=== PATIENT | male | born 1930 | race Caucasian/White ===

== ENCOUNTER 2016-10-12 12:13 | Inpatient (IN) | payer MEDICARE, OTHER ==
[~2016-10-12] VITALS: Ht 175.3 cm; Wt 76.3 kg
[~2016-10-12 12:13] MED LIST: AC500T PO; ACET-2469 PO; ASP81TEC PO; ATOR20TA66 PO; ATR20T PO; AZIT250T5 PO; AZIT500T PO; BENZ-13 PO; CALC-793 PO; CEFD300C3 PO; CLOB15CR2 TP; CLOB15CR3 TP; DARI15TA4 PO; DOCU-143 PO; ERGO400C PO; FESO8TAB PO; GABA600T2 PO; GBPN600T PO; GUAI118S37 PO; GUAI600T59 PO; IPRA3AMP IH; IPRA3AMP INH; LEVE500T6 PO; LEVO100T7 PO; LEVO750T39 PO; LISI10TA2 PO; LSNP20T PO; LVT.1T PO; MAGN400O7 PO; MENT71OI TP; MULT-1029 PO; NATURAL TEARS OU; NIAC1CAP PO; OLIV30OI EACH EAR; OLN2.5T PO; OXB5TCR PO; OXYBUTYNIN CHLORIDE TD; POLY17PO6 PO; POLY255P PO; PRD10T PO; ROBITUSSIN DM; SCOPOLAMINE 1.5 MG (TRANSDERM-SCOP) PATCH TOP SCH; TETR15DR73 OP; TR025C15 TP; TYLENOL PM PO; [UNRECOGNIZED DRUG - CODE] TP; [UNRECOGNIZED DRUG - OTHER] EACH EAR; [UNRECOGNIZED DRUG - OTHER] TP
--- OUTSIDE RECORDS SUMMARY | 2016-10-12 12:19 | XMS REPORT | Continuity of Care Document ---
Author Author [facility] Organization [facility] Address Unknown Phone Unavailable Care Team Providers Care Director Translational Name Role Phone PCP Unavailable Source Comments Some departments are not documenting in the electronic medical record. If you do not see the information that you expected, contact Release of Information in the Health Information Management department at [phone] for further assistance in locating additional records.[facility] Active Allergies and Adverse Reactions Not on File Current Medications Not on file Active Problems Not on file Social History Tobacco Use Types Packs/Day Years Used Date Never Assessed Plan of Care Health Maintenance Due Date Last Done Comments Physical (Comprehensive) 1937 Exam Pertussis Vaccine 1941 Tetanus Vaccine 1947 Shingles Vaccine 1990 Prevnar/Pneumovax (#1) 1995 Influenza Vaccine 06/09/2016 Results from Last 3 Months Not on file
[2016-10-12] MEDS ORDERED: NS IV 500 ML 500 ML IV ONE (14:04)
--- NOTE | 2016-10-12 14:14 | ED General ---
General Stated Complaint: ABNORMAL LABS Source of Information: Patient Exam Limitations: No Limitations History of Present Illness Time Seen by Provider: 13:54 Initial Comments Here with report of irregular labs today. Apparently had white count of 34,000 with abnormal chest x-ray from evaluation done this morning as ordered by primary care provider. On finding these labs, primary care nurse practitioner sent patient to ER for evaluation. Patient has had cough that has been chronic for a year but worse recently. Denies vomiting or diarrhea. States he is eating and drinking okay. No reported fevers. He was in the hospital last week for UTI. Currently on Cefdinir. Timing/Duration: 1-2 Days Severity: Moderate Associated Systoms: No Chest Pain, CoughNo Fever/Chills, No Nausea/Vomiting, Shortness of AirNo Weakness Allergies and Home Medications Allergies Coded Allergies: No Known Drug Allergies (Unverified , 12/04/11) Home Medications Acetaminophen 500 Mg Tablet 500 MG PO Q4H PRN PRN PAIN (Reported) Acetaminophen/Diphenhydramine 1 Each Tablet 1 TAB PO HS PRN PRN SLEEP (Reported ) Aspirin 81 Mg Tabec 81 MG PO DAILY (Reported) Atorvastatin Calcium 20 Mg Tablet 20 MG PO HS (Reported) Calcium/Vitamin D 1 Tab Tablet 1 TAB PO DAILY (Reported) Cefdinir 300 Mg Capsule #8 300 MG PO BID Prescribed by: KWESI DE JESUS on 10/07/16 0928 Clobetasol Propionate 15 Gm Cream..g. TP UD PRN PRN RASH (Reported) MAY USE MONDAY THROUGH MONDAY NEEDED TO AFFECTED REDDENED AREA(S) Docusate Sodium 100 Mg Capsule 100 MG PO BID (Reported) Fesoterodine Fumarate 8 Mg Tab.er.24h 8 MG PO DAILY (Reported) Gabapentin 600 Mg Tablet 600 MG PO TID (Reported) Guaifenesin 600 Mg Tab.er.12h 600 MG PO BID (Reported) Guaifenesin/Dextromethorphan 118 Ml Syrup 10 ML PO QID PRN PRN COUGH (Reported) Ipratropium/Albuterol Sulfate 3 Ml Ampul.neb 3 ML IH TID PRN PRN SHORTNESS OF BREATH (Reported) AND THROUGHOUT THE NIGHT NEEDED Levetiracetam 500 Mg Tablet 1,500 MG PO BID (Reported) TAKES 3 (500MG) TABLETS Levothyroxine Sodium 100 Mcg Tablet 100 MCG PO DAILY@1000 (Reported) Lisinopril 10 Mg Tablet 10 MG PO DAILY (Reported) Magnesium Hydroxide 400 Mg/5 Ml Oral.susp 10 ML PO DAILY PRN PRN CONSTIPATION ( Reported) Mineral Oil/Petrolatum,White 454 Gm Cream..g. TP DAILY PRN (Reported) Mu-Vits-Min Th/Lycopene/Lutein 1 Each Tablet 1 TAB PO DAILY (Reported) Niacin/Inositol Niacinate 1 Each Capsule 500 MG PO DAILY (Reported) [place] Oil 30 Ml Oil 1 DROP EACH EAR MoTh (Reported) Polyethylene Glycol 3350 255 Gm Powder 17 GM PO DAILY (Reported) Tetrahydrozoline HCl/Zn Sulf 15 Ml Drops OP DAILY PRN PRN PRN ALLERGIES ( Reported) Triamcinolone Acet 15 Gm Cr TP DAILY PRN PRN PRN RASH (Reported) Constitutional: see HPINo chills, No fever EENTM: no symptoms reportedNo nose congestion, No throat pain Respiratory: cough short of breath wheezing Cardiovascular: no symptoms reported Gastrointestinal: no symptoms reportedNo nausea, No vomiting Genitourinary: no symptoms reportedNo frequency, No pain Musculoskeletal: no symptoms reported Skin: no symptoms reported Psychiatric/Neurological: No Symptoms Reported All Other Systems Reviewed Negative Unless Noted: Yes Past Qvjdzxr-Mtdqju-Ejwlpg Hx Patient Social History Alcohol Use: Denies Use Recreational Drug Use: No Smoking Status: Never a Smoker Recent Foreign Travel: No Contact w/Someone Who Travel: No Recent Hopitalizations: No (1 YEAR AGO PNE) Immunizations Up To Date Tetanus Booster (TDap): Unknown PED Vaccines UTD: No Date of Pneumonia Vaccine: Sep 08, 2008 Date of Influenza Vaccine: Sep 05, 2016 Seasonal Allergies Seasonal Allergies: No Surgeries HX Surgeries: Yes (COLONOSCOPY, TURP, LEFT HIP REPLACEMENT) Surgeries: Transurethral Resection Respiratory Hx Respiratory Disorders: Yes Respiratory Disorders: Pneumonia Cardiovascular Hx Cardiac Disorders: Yes (CAROTID DISEASE, MITRAL REGURGITATION) Cardiac Disorders: Chronic Edema/Swelling, High Cholesterol, Hypertension, Valvular Heart Disease Neurological Hx Neurological Disorders: Yes (LEFT SIDE WEAKNESS; 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 GEN. PAIN) Musculoskeletal Disorders: Contracture Endocrine Hx Endocrine Disorders: Yes Endocrine Disorders: Hypothyroidsim HEENT HX ENT Disorders: Yes HEENT Disorders: Cataract Hearing Impairment: Hard of Hearing Cancer Hx Cancer: No Psychosocial Hx Psychiatric Problems: No Behavioral Health Disorders: Depression Integumentary HX Skin/Integumentary Disorder: Yes (ALLERGIC PURPURA, ECZEMA HERPETICUM) Skin/Integumentary Disorders: Eczema Blood Transfusions Hx Blood Disorders: No Adverse Reaction to a Blood Tr: No Reviewed Nursing Assessment Reviewed/Agree w Nursing PMH: Yes Family Medical History Significant Family History: No Pertinent Family Hx Family Medial History: FH: heart disease 19 MOTHER Myocardial infarction 19 FATHER, Onset:60 years & older Physical Exam-Suspected Sepsis Physical Exam Vital Signs Vital Sign - Last 12Hours 10/12/16 14:00 Temp 100.4 Pulse 91 Resp 18 B/P 94/52 Pulse Ox 94 O2 Delivery Room Air Capillary Refill : General Appearance: No Apparent Distress WD/WN HEENT: PERRL/EOMI Pharynx Normal Neck: Non Tender Supple Respiratory: Crackles (moderate bibasilar crackles with left greater than right) Cardiovascular: No Murmur Tachycardia Gastrointestinal: Non Tender Soft Back: Normal Inspection No CVA Tenderness No Vertebral Tenderness Extremity: Non Tender No Calf Tenderness Neurologic/Psychiatric: Alert Oriented x3 Skin: normal color warm/dry Progress/Results/Core Measures Suspected Sepsis SIRS Temperature: Pulse: Respiratory Rate: Blood Pressure / Mean: Results/Orders Lab Results Laboratory Tests Test 10/12/16 15:09 10/12/16 15:35 Range/Units C-Reactive Protein High Sensitivity 17.70 H 0.00-0.50 MG/DL Lactic Acid Level 2.2 *H 0.5-2.0 MMOL/L Urine Bacteria FEW H /HPF Urine Bilirubin 1+ H NEGATIVE Urine Casts NONE /LPF Urine Clarity SLIGHTLY CLOUDY Urine Color YELLOW Urine Crystals NONE /LPF Urine Culture Indicated YES Urine Glucose (UA) NEGATIVE NEGATIVE Urine Ketones 1+ H NEGATIVE Urine Leukocyte Esterase 2+ H NEGATIVE Urine Mucus NEGATIVE /LPF Urine Nitrite NEGATIVE NEGATIVE Urine Protein 2+ H NEGATIVE Urine RBC >100 H /HPF Urine RBC (Auto) 3+ H NEGATIVE Urine Specific [place] 1.010 L 1.016-1.022 Urine Urobilinogen NORMAL NORMAL MG/DL Urine WBC 50-100 H /HPF Urine pH 7 5-9 My Orders Orders-BOBBY NORMAN MD Hs C Reactive Protein (10/12/16 13:52) Lactic Acid Analyzer (10/12/16 13:52) Ua Culture If Indicated (10/12/16 13:52) Blood Culture (10/12/16 13:52) Chest 1 View, Ap/Pa Only (10/12/16 13:52) Saline Lock/Iv-Start (10/12/16 14:04) Ns Iv 500 Ml (Sodium Chloride 0.9%) (10/12/16 14:04) Picc Insertion .on Insertion (10/12/16 15:06) Urine Culture (10/12/16 15:35) Piperacillin Sodium/Tazobactam (Zosyn Vi (10/12/16 16:15) Medications Given in ED Current Medications Medications Dose Ordered Sig/Danilo Route Start Time Stop Time Status Last Admin Dose Admin Piperacillin Sod/ Tazobactam Sod 4.5 gm ONCE ONCE IV 10/12/16 16:15 10/12/16 16:16 DC 10/12/16 16:23 4.5 GM Sodium Chloride 500 ml @ 0 mls/hr Q0M ONCE IV 10/12/16 14:04 10/12/16 14:05 DC 10/12/16 15:58 500 MLS/HR Vital Signs/I&O Vital Sign - Last 12Hours 10/12/16 14:00 Temp 100.4 Pulse 91 Resp 18 B/P 94/52 Pulse Ox 94 O2 Delivery Room Air Capillary Refill : Progress Note : Progress Note Seen and evaluated. Reviewed labs done earlier today. Reviewed chest x-ray read results from earlier today. IV, labs, chest x-ray and UA ordered. We will not repeat labs done earlier today but chest x-ray revealed be repeated so we can compare it to previous as well and have paper copy of x-ray results. Outside facility CBC results showed white blood cell count 34.7 hemoglobin 12.9 hematocrit 39.5 and neutrophils absolute count at 29.7. Outside facility chemistry and normal range overall. Outside facility chest x-ray shows bibasilar infiltrates with left greater than right and interstitial fibrosis. Multiple attempts at IV access was done. Normal saline 500 mL bolus has been ordered. Patient has blood pressure greater than 65 on the mapping greater than 90 on systolic although close. Heart rate in the 90-100 range. 1522. Labs ultimately obtained and shows lactic acid of 2.2. UA delayed due to patient being unable to give urine sample. 1545: UA obtained. Patient's son is here now. I did discuss in depth with the patient's son about his current condition and trying to determine the patient's wishes with respect to aggressive therapy. He has got to talk with his family and he will let me know. All findings are consistent with severe sepsis without septic shock currently and does not require high-volume fluid resuscitation. 1605: I did discuss the case with the patient's other son who is a nurse at . They are still continuing discussion. Normal saline 500 mL bolus initiated. Patient's systolic blood pressure is 96 with a map of 66 currently and heart rate of 86 while resting. Pending decision, we will attempt to initiate Zosyn IV via the tenuous 22-gauge catheter in the chest vein. This IV will not support multiple antibiotics nor blood draws and will not support high volume fluid resuscitation. 1630: Patient's family has opted to switch to comfort care only which is reasonable given the patient's current condition and prognosis. Palate care consult placed. We will admit the patient for comfort care orders only. 1700: Hamilton Norman, palliative care RN in room and discussing care with family and patient. To be admitted for comfort care with comfort care order set. Dr. De Jesus updated. Diagnostic Imaging Diagonstic Imaging: Xray Plain Films/CT/US/NM/MRI: chest Comments VIA [place], [place] NAME: KENNEY LINDSEY [facility] REC#: [id number] PT STATUS: REG ER : 1930 PHYSICIAN: BOBBY NORMAN MD ADMIT DATE: 10/12/16/ER Draft Date of Exam:10/12/16 CHEST 1 VIEW, AP/PA ONLY INDICATION: Fever and cough, runny nose. Compared to 10/07/2016. FINDINGS: Bilateral infiltrates having improved on the right particularly at the upper and lower lobes. Left lower lobe infiltrate, however, is not substantially changed. Heart size stable. IMPRESSION: Bilateral infiltrates showed an improvement on the right. No adverse development apparent. Dictated on workstation # [id number] Dict: 10/12/16 1457 Trans: 10/12/16 1511 KB [id number] Interpreted by: MARIETTA CHRISTIANSON Electronically signed by: Departure Communication Time/Spoke to Admitting Phy: 15:05 Impression Impression: Primary Impression: Severe sepsis Additional Impressions: UTI (urinary tract infection) Qualified Code: N30.00 - Acute cystitis without hematuria Pneumonia Qualified Code: J18.9 - Pneumonia, unspecified organism Comfort Care Disposition: ADMITTED INPATIENT Condition: Unchanged Decision to Admit Reason: Admit from ER (General) Decision to Admit/Date: Oct 12, 2016 Time/Decision to Admit Time: 15:05 Departure-Patient Inst. Referrals: LUI RIOS MD (PCP/Family) Primary Care Physician BOBBY NORMAN MD Oct 12, 2016 14:14
--- NOTE | 2016-10-12 15:11 | Diagnostic Imaging Report ---
INDICATION: Fever and cough, runny nose. Compared to 10/07/2016. FINDINGS: Bilateral infiltrates having improved on the right particularly at the upper and lower lobes. Left lower lobe infiltrate, however, is not substantially changed. Heart size stable. IMPRESSION: Bilateral infiltrates showed an improvement on the right. No adverse development apparent. Dictated by: Dictated on workstation # [id number]
[2016-10-12 15:43] LABS: BILIRUBIN,URINE 1+ (NEGATIVE); KETONES,URINE 1+ (NEGATIVE); LEUKOCYTE ESTERASE ,URINE 2+ (NEGATIVE); NITRITE,URINE NEGATIVE (NEGATIVE); PH,URINE 7 (5-9); PROTEIN,URINE 2+ (NEGATIVE); UROBILINOGEN,URINE NORMAL (NORMAL)
[2016-10-12 16:01] LABS: WBC,URINE 50-100 /HPF
[2016-10-12] MEDS ORDERED: PIPERACILLIN/TAZO 4.5 GM VIAL (ZOSYN) IV ONE (16:15)
[2016-10-12 17:45] VITALS: BP 96/47
[2016-10-12] MEDS ORDERED: ACETAMINOPHEN 325 MG TABLET/CAPLET (TYLENOL) PO PRN (18:15)
[2016-10-12] MEDS ORDERED: ARTIFICAL TEARS 0.4 ML UNIT DOSE (REFRESH PLUS) OU PRN (18:30)
[2016-10-12] MEDS ORDERED: SALIVA STIMULANT MOUTH SPRAY (BIOTENE) 1.5 OZ MM PRN (18:30)
[2016-10-12] MEDS ORDERED: ATROPINE 1% OPHTHALMIC SOLN 2 ML SL PRN (18:30)
[2016-10-12] MEDS ORDERED: BISACODYL 10 MG SUPP (DULCOLAX) PR PRN (18:30)
[2016-10-12] MEDS ORDERED: morphine INJ 4 MG/ML 1 ML (VIAL/SYRINGE) IV PRN (18:30)
[2016-10-12] MEDS ORDERED: GLYCOPYRROLATE 0.2 MG/ML (ROBINUL) 2 ML VIAL IV PRN (18:30)
[2016-10-12] MEDS ORDERED: RT-ALBUTEROL/IPRATROPIUM 3 ML (DUONEB) VIAL INH PRN (18:30)
[2016-10-12] MEDS ORDERED: ACETAMINOPHEN 650 MG SUPP (TYLENOL) PR PRN (18:30)
[2016-10-12] MEDS ORDERED: LORazepam INJ 2 MG/ML (ATIVAN) VIAL IV PRN (18:30)
[2016-10-12] MEDS ORDERED: ONDANSETRON 4 MG/2 ML (SDV) Z0FRAN IV PRN (18:30)
[2016-10-12] MEDS ORDERED: SCOPOLAMINE 1.5 MG (TRANSDERM-SCOP) PATCH TOP SCH (20:00)
[2016-10-13] MEDS ORDERED: LIDOCAINE UROJET 2% GEL 10 ML PKG ONE (00:59)
[2016-10-13] MEDS ORDERED: LIDOCAINE UROJET 2% GEL 10 ML PKG TOP ONE (01:30)
--- NOTE | 2016-10-13 07:55 | History & Physical-Hospitalist ---
HPI History of Present Illness: HPI/Chief Complaint CC: Comfort Care, End of Life HPI: This is a 86yoWM pt of Dr. Enamorado'stuart that was just DC from [facility] on 10/07/16 for UTI maintained on Omnicef but returned with bilateral pneumonia. ER doctor was preparing for PICC line central line placement when comfort care was discussed and family chose that route which is reasonable. head of talent management: Pt did not have any complaints other than minor cath discomfort. Pt was given Lidocaine around the area. Pt was in good humor last night and family was with him. Patient Interview: Pt states he is comfortable currently. Pt daughter is with pt. Pt daughter states Palliative Care spoke with her brother last night. Physical exam was stable. Pt asked if knew Brian Woodward. Pt daughter states Brian was a good friend of pt and he 1.5 months ago. Physical exam revealed coarseness. Scribed by Juan Pablo Flanagan under the direct supervision of Dr. De Jesus. Source: patient Date Seen 10/13/16 Attending Physician Peace De Jesus John D MD Referring Physician Date of Admission Oct 12, 2016 at 17:00 Home Medications & Allergies Home Medications Reviewed patient Home Medication Reconciliation Form Allergies Coded Allergies: No Known Drug Allergies (Unverified , 12/04/11) Past Lxwxwby-Woqucd-Twfjej Hx Patient Social History Marrital Status: Employed/Student: retired Alcohol Use: Denies Use Recreational Drug Use: No Smoking Status: Never a Smoker Physical Abuse Screen: No Sexual Abuse: No Recent Foreign Travel: No Contact w/other who traveled: No Recent Hopitalizations: Yes Recent Infectious Disease Expo: No Immunizations Up To Date Tetanus Booster (TDap): Unknown Date of Pneumonia Vaccine: Sep 08, 2008 Date of Influenza Vaccine: Sep 05, 2016 Seasonal Allergies Seasonal Allergies: No Surgeries HX Surgeries: Yes (COLONOSCOPY, TURP, LEFT HIP REPLACEMENT) Surgeries: Transurethral Resection Respiratory Hx Respiratory Disorders: Yes Respiratory Disorders: Pneumonia Cardiovascular Hx Cardiovascular Disorders: Yes (CAROTID DISEASE, MITRAL REGURGITATION) Cardiac Disorders: Chronic Edema/Swelling, High Cholesterol, Hypertension, Valvular Heart Disease Neurological Hx Neurological Disorders: Yes (LEFT SIDE WEAKNESS; 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 GEN. PAIN) Musculoskeletal Disorders: Contracture Endocrine Hx Endocrine Disorders: Yes Endocrine Disorders: Hypothyroidsim HEENT HX ENT Disorders: Yes HEENT Disorders: Cataract Hearing Impairment: Hard of Hearing Cancer Hx Cancer: No Psychosocial Hx Psychiatric Problems: No Behavioral Health Disorders: Depression Integumentary HX Skin/Integumentary Disorder: Yes (ALLERGIC PURPURA, ECZEMA HERPETICUM) Skin/Integumentary Disorders: Eczema Blood Transfusions Hx Blood Disorders: No Adverse Reaction to a Blood Tr: No Reviewed Nursing Assessment Reviewed/Agree w Nursing PMH: Yes Family Medical History Significant Family History: No Pertinent Family Hx Family Hx: FH: heart disease 19 MOTHER Myocardial infarction 19 FATHER, Onset:60 years & older Review of Systems Constitutional: see HPI dizziness fever malaise weakness weight loss EENTM: no symptoms reported Respiratory: cough short of breath Cardiovascular: no symptoms reported Gastrointestinal: no symptoms reported Genitourinary: no symptoms reported Musculoskeletal: no symptoms reported Skin: no symptoms reported Psychiatric/Neurological: Depressed All Other Systems Reviewed Negative Unless Noted: Yes Physical Exam Physical Exam Vital Signs Vital Sign - Last 12Hours 10/12/16 10/12/16 14:00 17:45 Temp 100.4 Pulse 91 Resp 18 B/P 94/52 Pulse Ox 94 O2 Delivery Room Air O2 Flow Rate 2 Capillary Refill : Less Than 3 Seconds General Appearance: No Apparent Distress WD/WN Chronically ill Thin Eyes: Bilateral Eye Normal Inspection, Bilateral Eye PERRL HEENT: PERRL/EOMI Normal ENT Inspection Pharynx Normal Neck: Full Range of Motion Normal Inspection Non Tender Supple Carotid Bruit Respiratory: Chest Non Tender No Accessory Muscle Use No Respiratory Distress Crackles Decreased Breath Sounds Rales Wheezing Cardiovascular: Regular Rate, Rhythm No Edema No Gallop No JVD No Murmur Normal Peripheral Pulses Gastrointestinal: Normal Bowel Sounds No Organomegaly No Pulsatile Mass Non Tender Soft Back: Normal Inspection No CVA Tenderness No Vertebral Tenderness Extremity: Normal Capillary Refill Normal Inspection Normal Range of Motion Non Tender No Calf Tenderness No Pedal Edema Neurologic/Psychiatric: Alert Oriented x3 Normal Mood/Affect Motor Weakness ( left side) Skin: Normal Color Warm/Dry Lymphatic: No Adenopathy Assessment/Plan Admission Diagnosis Facility acquired pneumonia resistant organism considering he was on Omnicef for UTI since discharge 2 days prior End of life care Sepsis Recurrent UTI 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
[2016-10-13] MEDS ORDERED: GUAI118S37 PO (12:07)
[2016-10-13] MEDS ORDERED: MORP100S3 PO (12:07)
[2016-10-13] MEDS ORDERED: LORA2ORA PO (12:07)
--- NOTE | 2016-10-13 12:09 | Discharge Instructions ---
Discharge Instructions Discharge Medications New, Converted or Re-Newed RX: RX on Chart New Medications: Lorazepam (Lorazepam Intensol) 2 Mg/1 Ml Oral.conc 2 MG PO Q4H PRN ANXIETY #30 ML Morphine Sulfate (Morphine Sulfate Concentrate 20mg/ml) 100 Mg/5 Ml Solution 5 MG PO Q2H PRN PAIN #30 ML Continued Medications: Acetaminophen (Tylenol) 500 Mg Tablet 500 MG PO Q4H PRN PAIN Guaifenesin/Dextromethorphan (Tussin Dm Syrup) 118 Ml Syrup 10 ML PO QID PRN COUGH #8 (This prescription has been renewed) Levetiracetam (Levetiracetam) 500 Mg Tablet 1500 MG PO BID TAKES 3 (500MG) TABLETS Levothyroxine Sodium (Levothyroxine Sodium) 100 Mcg Tablet 100 MCG PO DAILY@1000 Discontinued Medications: Acetaminophen/Diphenhydramine (Tylenol Pm Ex-Strength Caplet) 1 Each Tablet 1 TAB PO HS PRN SLEEP Aspirin (Aspirin Ec 81 Mg) 81 Mg Tabec 81 MG PO DAILY Atorvastatin Calcium (Atorvastatin Calcium) 20 Mg Tablet 20 MG PO HS Calcium/Vitamin D (Calcarb 600 W/Vitamin D Tab) 1 Tab Tablet 1 TAB PO DAILY Cefdinir (Cefdinir) 300 Mg Capsule 300 MG PO BID #8 CAP Clobetasol Propionate (Clobetasol Propionate) 15 Gm Cream..g. TP UD MAY USE MONDAY THROUGH MONDAY NEEDED TO AFFECTED REDDENED AREA(S) PRN RASH TUBE Docusate Sodium (Colace) 100 Mg Capsule 100 MG PO BID CAP Fesoterodine Fumarate (Toviaz) 8 Mg Tab.er.24h 8 MG PO DAILY TAB Gabapentin (Gabapentin) 600 Mg Tablet 600 MG PO TID Guaifenesin (Guaifenesin ER) 600 Mg Tab.er.12h 600 MG PO BID TAB Ipratropium/Albuterol Sulfate (Iprat-Albut 0.5-3(2.5) mg/3 ml) 3 Ml Ampul.neb 3 ML IH TID AND THROUGHOUT THE NIGHT NEEDED PRN SHORTNESS OF BREATH EACH Lisinopril (Lisinopril) 10 Mg Tablet 10 MG PO DAILY Magnesium Hydroxide (Milk of Magnesia) 400 Mg/5 Ml Oral.susp 10 ML PO DAILY PRN CONSTIPATION ML Mineral Oil/Petrolatum,White (Hydrocerin Cream) 454 Gm Cream..g. TP DAILY PRN TUBE Mu-Vits-Min Th/Lycopene/Lutein (Centrum Silver Tablet) 1 Each Tablet 1 TAB PO DAILY Niacin/Inositol Niacinate (Niacin 500 Mg Capsule) 1 Each Capsule 500 MG PO DAILY [place] Oil (Sweet Oil) 30 Ml Oil 1 DROP EACH EAR MoTh ML Polyethylene Glycol 3350 (Polyethylene Glycol 3350) 255 Gm Powder 17 GM PO DAILY Tetrahydrozoline HCl/Zn Sulf (Visine Allergy Relief Drop) 15 Ml Drops OP DAILY PRN PRN ALLERGIES DROPS Triamcinolone Acet (Triamcinolone Acetonide) 15 Gm Cr TP DAILY PRN PRN RASH TUBE Patient Instructions Goal/Follow Up Appt: Enroll into Hospice Activity & Diet Discharge Diet: No Restrictions Activity as Tolerated: Yes KWESI DE JESUS DO Oct 13, 2016 12:08
[2016-10-15] MEDS ORDERED: SCOPOLAMINE PATCH REMOVAL TP SCH (19:59)
== END 2016-10-13 13:40 | disposition hospice, inpatient (51) | DRG 871 ==
LOC: EDUNIT# 12:13 → ER 12:14 → 4TH 17:00
PROVIDERS: ADMIT Internal Medicine; ATTEND Internal Medicine
DX: A41.9 Sepsis, unspecified organism (principal); J18.9 Pneumonia, unspecified organism; N39.0 Urinary tract infection, site not specified; Z66 Do not resuscitate; Z51.5 Encounter for palliative care; I69.354 Hemiplegia and hemiparesis following cerebral infarction affecting left non-dominant side; I10 Essential (primary) hypertension; G40.909 Epilepsy, unspecified, not intractable, without status epilepticus; E03.9 Hypothyroidism, unspecified; E78.00 Pure hypercholesterolemia, unspecified
CPT/HCPCS: 36415; 51702; 71010; 81000; 83605; 86141; 87040; 87088; 96361; 96365